=== PATIENT | female | born 1975 | race Caucasian/White ===

== ENCOUNTER 2023-08-12 09:59 | Outpatient (CLI) | payer BC, SELFPAY | END 2023-08-12 10:00 | disposition home or self-care (01) | LOC: AMB 08-14 01:50 | PROVIDERS: Visit Provider Emergency Medicine | DX: R07.89 Other chest pain (principal) | CPT/HCPCS: A0425; A0427 ==

== ENCOUNTER 2023-08-12 10:30 | Emergency (ER) | payer BC, SELFPAY ==
[2023-08-12 10:38] VITALS: BP 117/69; PULSE 54; RESP 16; TEMP 36.8; O2SAT 98; BMI 19.1
--- NOTE | 2023-08-12 10:47 | ED_ITS ---
HPI - Chest Pain General Time Seen by Provider: 10:48 Date Seen: 08/12/23 Chief Complaint: Chest Pain Stated Complaint: chest pain Time Seen by Provider: 08/12/23 10:47 Source: patient Mode of arrival: ambulatory Limitations: no limitations History of Present Illness HPI narrative: Shayla is a very pleasant 48-year-old female with history of appendectomy postop day 3., possible Crohn's disease and recent airplane ride who comes to the emergency room for chest pain. Patient notes that this morning she woke up with chest discomfort she shows this to be the mid aspect of her chest that radiated in to both sides of her chest and into her back. Patient notes she feels like she needs to crack her back course flex her back to make it feel better. It is associated with ?difficulty breathing?. She notes similar feeling on Saturday the day after she had her appendectomy while she was driving. She thought perhaps this was anxiety or hunger and after stopping and eating she felt much better. She denies a history of DVT, lower extremity edema, fever or chills. She has not yet had a bowel movement since her surgery on Saturday night August 08. Leslie thought perhaps her chest pain while traveling was from anxiety although she has never experienced chest pain like this in the past. Patient has been in [place] at a spiritual retreat in the [facility] when she suffered from an appendicitis and had her appendix removed by a specialist in [place]. For 7 years she had chronic colitis and it was thought that she had Crohn's but it sounds like there was no definitive diagnosis. She had an open incision rather than laparoscopic given the fact that she had an inflamed ileum. She notes that her surgeon was a Crohn's specialist. She notes no complications that evening. She stayed overnight and was discharged the next day. She has been using [employer] sparingly. Patient denies fever or chills. She has not had any vomiting. She had Toradol in the hospital which worked for her. She prefers not to take oral ibuprofen as it upsets her stomach. No family history of early cardiac disease or aortic dissection. Related Data Home Medications ?Medication ?Instructions ?Recorded ?Confirmed hydrocodone 5 mg-acetaminophen 325 1 tab PO Q4-6H PRN 08/12/23 08/12/23 mg tablet Allergies Allergy/AdvReac Type Severity Reaction Status Date / Time No Known Drug Allergies Allergy Verified 08/12/23 11:45 Review of Systems Status of ROS Reports: 10 or more systems reviewed and unremarkable except as noted in History and below Const Denies: fever or chills ENMT Denies: throat pain or neck pain Cardio Reports: chest pain; Denies: palpitations, edema, swelling of feet/ankles or shortness of breath with exertion Resp Denies: shortness of breath GI Reports: nausea and constipation; Denies: abdominal pain or vomiting Denies: painful urination or urinary frequency Musculo Reports: back pain; Denies: neck pain or extremity pain Integ/Breast Denies: rash Neuro Denies: headache PFSH PFSH Social History Smoking Status: Never smoker Do you use any of these nicotine containing products: None Second hand tobacco smoke exposure: No How often do you have a drink containing alcohol: never AUDIT-C Alcohol total score: 0 Non-prescribed substance use: marijuana (any form) Exam Narrative Exam Narrative: Alert and oriented. Very pleasant well-spoken woman in no acute distress. Observed breathing through IV placement. External ears eyes nose clear. Lips are dry. Speaking normally. Heart with a bradycardic rate normal rhythm. Lungs are clear bilaterally. Palpation of chest wall does not yield significant tenderness. Palpation of abdomen does not yield tenderness. Patient did seem anxious as I palpated near right lower quadrant incision. Bandages in place with no drainage on it. No surrounding erythema. Lower extremities without edema. Pedal pulses are symmetrical. No calf tenderness. Const Vital Signs, click to edit/add: Vital Signs - 24 hr 08/12/23 10:38 08/12/23 15:13 08/12/23 16:23 Temperature 98.3 F 98.8 F Pulse Rate [Pulse Oximeter] 54 L 49 L 50 L Respiratory Rate 16 16 16 Blood Pressure [Left Upper Arm] 117/69 133/75 128/83 Pulse Oximetry 98 98 98 Oxygen Delivery Method Room Air Room Air Room Air Documenting provider has reviewed patient's vital signs: yes Course Course ED Course: Differential diagnosis includes but is not limited to acute coronary event, PE, pneumothorax, aortic dissection, angina, anxiety, pneumonia. Will place IV and give 1/2 L normal saline. Will also use Toradol 15 mg IV for discomfort. Labs will include CBC, comprehensive panel, troponin, EKG, urinalysis, CRP. At this time will not do a D-dimer because this will be elevated. Instead given her recent history suggest CT of the chest abdomen pelvis PE study. Reevaluation(s) Reevaluation #1: Patient noted significant relief with the use of Toradol. She states that she is breathing much better and can feel her chest loosening up. Fortunately CT did not show any evidence of PE. Unfortunately there is a large abscess in the abdomen with associated ileal cecal inflammation. I have spoken with our surgeon Dr. Hardy we does suggest transfer to outside institution with the abilities do Interventional Radiology and drain this abscess. Patient would like us to check 1st with [facility] in the [facility] and then [place]. However, should those to institutions be field she is amenable to any hospital that has capacity to care for her. Reevaluation #2: Patient's pain has returned and therefore will use morphine 4 mg and Zofran 4 mg. We have received acceptance from [facility] after speaking to both surgeon and hospitalist. Will start patient on maintenance fluids and keep her NPO. Attempting to obtain records from [facility] in [place] where patient had her surgery. Vital Signs Vital signs: Initial Vital Signs Temperature 98.3 F 08/12/23 10:38 Temperature Source Temporal Artery Scan 08/12/23 10:38 Pulse Rate 54 L 08/12/23 10:38 Pulse Rhythm Regular 08/12/23 10:38 Pulse Strength 3+ Normal 08/12/23 10:38 Respiratory Rate 16 08/12/23 10:38 Blood Pressure 117/69 08/12/23 10:38 Blood Pressure Mean 85 08/12/23 10:38 Blood Pressure Position Sitting 08/12/23 10:38 Pulse Oximetry 98 08/12/23 10:38 Oxygen Delivery Method Room Air 08/12/23 10:38 Vital Signs Temperature 98.3 F 08/12/23 10:38 Pulse Rate 54 L 08/12/23 10:38 Respiratory Rate 16 08/12/23 10:38 Blood Pressure 117/69 08/12/23 10:38 Pulse Oximetry 98 08/12/23 10:38 Oxygen Delivery Method Room Air 08/12/23 10:38 Temperature 98.8 F 08/12/23 16:23 Pulse Rate 50 L 08/12/23 16:23 Respiratory Rate 16 08/12/23 16:23 Blood Pressure 128/83 08/12/23 16:23 Pulse Oximetry 98 08/12/23 16:23 Oxygen Delivery Method Room Air 08/12/23 16:23 Medications Administered Medications: Generic Name Dose Route Start Last Admin Trade Name Leah PRN Reason Stop Dose Admin Sodium Chloride 1,000 mls @ 125 mls/hr 08/12/23 15:04 08/12/23 15:30 0.9 % Sodium Chloride 1000 Ml IV 125 mls/hr .Q8H RACQUEL Administration Discontinued Medications Generic Name Dose Route Start Last Admin Trade Name Leah PRN Reason Stop Dose Admin Sodium Chloride 500 mls @ 500 mls/hr 08/12/23 10:58 08/12/23 12:04 0.9 % Sodium Chloride 500 Ml IV 08/12/23 11:57 Infused .Q1H ONE Infusion Piperacillin Sod/Tazobactam 100 mls @ 200 mls/hr 08/12/23 14:18 08/12/23 14:44 Sod 3.375 gm/ Sodium Chloride IVPB 08/12/23 14:19 200 mls/hr ONCE ONE Administration Ketorolac Tromethamine 15 mg 08/12/23 11:05 08/12/23 11:22 Ketorolac 15 Mg/Ml Inj IVP 08/12/23 11:06 15 mg ONCE ONE Administration Morphine Sulfate 4 mg 08/12/23 14:18 08/12/23 14:35 Morphine 4 Mg/Ml Inj IVP 08/12/23 14:19 4 mg ONCE ONE Administration Ondansetron HCl 4 mg 08/12/23 14:18 08/12/23 14:36 Ondansetron 2 Mg/Ml Inj IVP 08/12/23 14:19 4 mg ONCE ONE Administration MDM - Chest Pain MDM Narrative Medical decision making narrative: 1. Abdominal abscess-postop day 3. From appendectomy. White count is normal at 5.47 the patient does have elevation of her CRP to 3.6. No fever chills. At this time. Will give 1st dose of antibiotic Zosyn while awaiting consult with [facility]. Updated: Patient has been accepted in transfer to [facility] by Dr. Waldron following consult with surgeon Dr. Oneill. CT unable to be pushed to this facility and therefore disc has been made. Patient with significant relief after Toradol the pain is return. Will give 1 dose of morphine 4 mg and Zofran [address] on maintenance fluids and patient is to be kept NPO. 2. Chest pain-this is much improved. Patient had reassuring EKG as well as negative troponin x2. Toradol greatly relieved any discomfort. No evidence of PE noted on CT. A few branching tree-in-bud micronodular opacities in the right upper lobe, suspicious for a mild localized infectious/inflammatory process. No fever and O2 sats are reassuring. COVID negative. 3. Disposition-ground ambulance ALS transfer to [facility] for specialty care, IR and GI availability. Lab Data Attestation: I reviewed the patient's lab results. Labs: Lab Results 08/12/23 08/12/23 08/12/23 Range/Units 10:53 10:58 12:58 WBC 5.47 (4.50-11.00) K/uL RBC 4.02 (4.00-5.20) m/uL Hgb 11.0 L (12.0-16.0) gm/dL Hct 33.9 (33.0-51.0) % MCV 84 (80-100) fL MCH 27 (26-34) pg MCHC 32 (32-36) gm/dL RDW Coeff of Alexandre 15.1 (11.5-15.5) % Plt Count 211 (140-440) K/uL Neut % (Auto) 61.0 (42.0-72.0) % Lymph % (Auto) 28.9 (20-44) % [place] % (Auto) 8.4 (0.0-11.0) % Eos % (Auto) 1.1 (0.0-7.0) % Baso % (Auto) 0.4 (0.0-3.0) % Neut # (Auto) 3.34 (1.7-7.0) K/uL Lymph # (Auto) 1.58 (0.90-2.90) K/uL [place] # (Auto) 0.50 (0.00-0.90) K/UL Eos # (Auto) 0.06 (0.00-0.50) K/uL Baso # (Auto) 0.02 (0.00-0.30) K/uL Abs Immat Gran (auto) 0.01 (0.00-0.30) K/uL Imm/Tot Granulo (auto) 0.2 % Sodium 139 (135-149) mmol/L Potassium 3.4 L (3.6-5.1) mmol/L Chloride 106 (96-114) mmol/L Carbon Dioxide 28 (20-32) mmol/L Anion Gap 5 L (7-15) mEq/L BUN 9 (5-24) mg/dL Creatinine 0.5 (0.5-1.5) mg/dL Estimated Creat Clear 110.56 Estimated GFR 116 ml/min Glucose 98 (60-115) mg/dL Calcium 8.8 (8.4-10.6) mg/dL Total Bilirubin 0.3 (0.1-1.5) mg/dL AST 17 (12-35) U/L ALT 15 (4-35) U/L Alkaline Phosphatase 57 (40-150) U/L C-Reactive Protein 3.6 H (0.5-1.0) mg/dL Total Protein 6.2 (6.0-8.3) g/dL Albumin 3.6 (3.3-5.0) g/dL Urine Color Yellow (Yellow) Urine Appearance Clear (Clear) Urine pH 7.0 (5.0-8.5) Ur Specific [place] 1.015 (1.000-1.030) Urine Protein Negative (Negative) Urine Glucose (UA) Negative (Negative) Urine Ketones Negative (Negative) Urine Blood Negative (Negative) Urine Nitrite Negative (Negative) Urine Bilirubin Negative (Negative) Urine Urobilinogen 0.2 (0.2-1.0) Ur Leukocyte Esterase Trace A (Negative) Urine RBC 0-2 (0-2) Urine WBC 2-5 (0-5) Ur Squamous Epith Cells Few (None-Few) Urine Bacteria None (None) SARS-CoV-2 (PCR) (Negative) Influenza Type A (PCR) (Negative) Influenza Type B (PCR) (Negative) RSV (PCR) (Negative) POC Troponin I 0.00 L 0.00 L (0.01-0.04) ng/ml 08/12/23 Range/Units 13:08 WBC (4.50-11.00) K/uL RBC (4.00-5.20) m/uL Hgb (12.0-16.0) gm/dL Hct (33.0-51.0) % MCV (80-100) fL MCH (26-34) pg MCHC (32-36) gm/dL RDW Coeff of Alexandre (11.5-15.5) % Plt Count (140-440) K/uL Neut % (Auto) (42.0-72.0) % Lymph % (Auto) (20-44) % [place] % (Auto) (0.0-11.0) % Eos % (Auto) (0.0-7.0) % Baso % (Auto) (0.0-3.0) % Neut # (Auto) (1.7-7.0) K/uL Lymph # (Auto) (0.90-2.90) K/uL [place] # (Auto) (0.00-0.90) K/UL Eos # (Auto) (0.00-0.50) K/uL Baso # (Auto) (0.00-0.30) K/uL Abs Immat Gran (auto) (0.00-0.30) K/uL Imm/Tot Granulo (auto) % Sodium (135-149) mmol/L Potassium (3.6-5.1) mmol/L Chloride (96-114) mmol/L Carbon Dioxide (20-32) mmol/L Anion Gap (7-15) mEq/L BUN (5-24) mg/dL Creatinine (0.5-1.5) mg/dL Estimated Creat Clear Estimated GFR ml/min Glucose (60-115) mg/dL Calcium (8.4-10.6) mg/dL Total Bilirubin (0.1-1.5) mg/dL AST (12-35) U/L ALT (4-35) U/L Alkaline Phosphatase (40-150) U/L C-Reactive Protein (0.5-1.0) mg/dL Total Protein (6.0-8.3) g/dL Albumin (3.3-5.0) g/dL Urine Color (Yellow) Urine Appearance (Clear) Urine pH (5.0-8.5) Ur Specific [place] (1.000-1.030) Urine Protein (Negative) Urine Glucose (UA) (Negative) Urine Ketones (Negative) Urine Blood (Negative) Urine Nitrite (Negative) Urine Bilirubin (Negative) Urine Urobilinogen (0.2-1.0) Ur Leukocyte Esterase (Negative) Urine RBC (0-2) Urine WBC (0-5) Ur Squamous Epith Cells (None-Few) Urine Bacteria (None) SARS-CoV-2 (PCR) Negative SARS-CoV-2 (Negative) Influenza Type A (PCR) Negative PCR FLU A (Negative) Influenza Type B (PCR) Negative PCR FLU B (Negative) RSV (PCR) Negative PCR RSV (Negative) POC Troponin I (0.01-0.04) ng/ml Imaging Data CT Chest/Ab/Pelvis: Attestation: I have reviewed the pertinent imaging results. Radiologist's impression: eart and vasculature: Contrast opacification of the pulmonary arterial tree is adequate. No sign of pulmonary embolism. Heart size is normal. Thoracic aorta and pulmonary artery are normal in caliber. Lungs and pleura: Few branching tree-in-bud type micronodular opacities at the periphery of the right upper lobe (axial series 6, image [id number]). Minimal bibasilar atelectasis. No pleural effusions, pleural thickening, or pneumothorax. Lymph nodes/mediastinum: No mediastinal, hilar, or axillary adenopathy. Chest wall: No masses. Upper abdomen: For description of findings in the included abdomen, please see the dedicated abdominal CT report Bones: Unremarkable for age. IMPRESSION: 1. Negative for pulmonary embolism. 2. A few branching tree-in-bud micronodular opacities in the right upper lobe, suspicious for a mild localized infectious/inflammatory process. Lung bases: Normal. Liver: Normal. No mass. Gallbladder and bile ducts: Normal gallbladder. No bile duct dilation. Pancreas: Normal. Spleen: Normal. Small splenules. Adrenal glands: Normal. Kidneys: Normal parenchyma. No cyst or solid mass. No calculi. No urinary tract dilation. Urinary bladder: Normal. Pelvis: No cyst or mass. Vessels: Normal. Bowel: Retrocecal rim enhancing abscess measures 2.0 x 2.7 x 4.6 centimeters (AP by transverse by cc). There is significant inflammation of the terminal ileum. The involved segment measures about 10 centimeters in length. There is mucosal hyperenhancement and significant submucosal edema with bowel wall thickness measuring up to 1 centimeter. The degree of mucosal edema and wall thickening is mildly asymmetric. There is adjacent mesenteric hyperemia. No upstream dilatation. There is a moderate to large stool burden. Lymph nodes: No adenopathy. Peritoneum: Small ascites in the pelvis. Abdominal wall: Gas in the right lower quadrant abdominal wall is likely postoperative. Bones: No fractures. No focal worrisome bone lesions. IMPRESSION: 1. There is a retrocecal abscess. 2. Terminal ileitis in a pattern concerning for inflammatory bowel disease. Please note that all CT scans at this facility use dose modulation, iterative reconstruction, and/or weight-based dosing when appropriate to reduce radiation dose to as low as reasonably achievable. ECG Data Attestation: I personally reviewed and interpreted this ECG as follows: ECG interpretation date: 08/12/23 Interpretation: EKG by my read shows sinus rhythm at a rate of 53. No acute ST or T-wave changes. QT and OK intervals within normal limits. Discharge Plan Discharge Clinical Impression: Atypical chest pain, Retrocecal abscess, Status post appendectomy Patient Disposition: [facility] Discharge Location: [facility] Condition: Improved
--- NOTE | 2023-08-12 11:06 | CRLHL7_ITS ---
For Patients: As a result of the Century Cures Act, medical imaging exams and procedure reports are released immediately into your electronic medical record. You may view this report before your referring provider. If you have questions, please contact your health care provider. INDICATION: Recent emergency appendectomy 08/09/2023. Shortness of breath, pain. COMPARISON: None. TECHNIQUE: CT of the abdomen and pelvis with intravenous contrast. Multiplanar axial, coronal, and sagittal reformats were reconstructed. Contrast: 95 mL Isovue 370. FINDINGS: Lung bases: Normal. Liver: Normal. No mass. Gallbladder and bile ducts: Normal gallbladder. No bile duct dilation. Pancreas: Normal. Spleen: Normal. Small splenules. Adrenal glands: Normal. Kidneys: Normal parenchyma. No cyst or solid mass. No calculi. No urinary tract dilation. Urinary bladder: Normal. Pelvis: No cyst or mass. Vessels: Normal. Bowel: Retrocecal rim enhancing abscess measures 2.0 x 2.7 x 4.6 centimeters (AP by transverse by cc). There is significant inflammation of the terminal ileum. The involved segment measures about 10 centimeters in length. There is mucosal hyperenhancement and significant submucosal edema with bowel wall thickness measuring up to 1 centimeter. The degree of mucosal edema and wall thickening is mildly asymmetric. There is adjacent mesenteric hyperemia. No upstream dilatation. There is a moderate to large stool burden. Lymph nodes: No adenopathy. Peritoneum: Small ascites in the pelvis. Abdominal wall: Gas in the right lower quadrant abdominal wall is likely postoperative. Bones: No fractures. No focal worrisome bone lesions. IMPRESSION: 1. There is a retrocecal abscess. 2. Terminal ileitis in a pattern concerning for inflammatory bowel disease. Please note that all CT scans at this facility use dose modulation, iterative reconstruction, and/or weight-based dosing when appropriate to reduce radiation dose to as low as reasonably achievable. Dictated by Fernanda Menon MD @ 08/12/2023 12:18:50 PM (Electronically Signed)
--- NOTE | 2023-08-12 11:06 | CRLHL7_ITS ---
For Patients: As a result of the Century Cures Act, medical imaging exams and procedure reports are released immediately into your electronic medical record. You may view this report before your referring provider. If you have questions, please contact your health care provider. INDICATION: Shortness of breath. Recent emergency appendectomy. TECHNIQUE: CT chest PE was acquired with 95 cc Isovue 370 IV contrast. COMPARISON: None. FINDINGS: Heart and vasculature: Contrast opacification of the pulmonary arterial tree is adequate. No sign of pulmonary embolism. Heart size is normal. Thoracic aorta and pulmonary artery are normal in caliber. Lungs and pleura: Few branching tree-in-bud type micronodular opacities at the periphery of the right upper lobe (axial series 6, image [id number]). Minimal bibasilar atelectasis. No pleural effusions, pleural thickening, or pneumothorax. Lymph nodes/mediastinum: No mediastinal, hilar, or axillary adenopathy. Chest wall: No masses. Upper abdomen: For description of findings in the included abdomen, please see the dedicated abdominal CT report Bones: Unremarkable for age. IMPRESSION: 1. Negative for pulmonary embolism. 2. A few branching tree-in-bud micronodular opacities in the right upper lobe, suspicious for a mild localized infectious/inflammatory process. Please note that all CT scans at this facility use dose modulation, iterative reconstruction, and/or weight-based dosing when appropriate to reduce radiation dose to as low as reasonably achievable. Dictated by Moose Baker MD @ 08/12/2023 12:14:11 PM (Electronically Signed)
[2023-08-12] MEDS: KETOROLAC 15 MG/ML inj IVP (11:22)
[2023-08-12] MEDS: 0.9 % SODIUM CHLORIDE 500 ML 500 ML IV (11:23)
[2023-08-12 11:24] LABS: Appearance Urine Clear (Clear); Bilirubin Urine Negative (Negative); Blood Urine Negative (Negative); Color Urine Yellow (Yellow); Glucose Urine Negative (Negative); Ketones Urine Negative (Negative); Leukocyte Esterase Urine Trace (Negative); Nitrite Urine Negative (Negative); Protein Urine Negative (Negative); Specific Gravity Urine 1.015 (1.000-1.030); Urobilinogen Urine 0.2 (0.2-1.0)
[2023-08-12 11:34] LABS: Basophils Absolute Auto 0.02 K/uL (0.00-0.30); Basophils Percent Auto 0.4 % (0.0-3.0); Eosinophils Absolute Auto 0.06 K/uL (0.00-0.50); Eosinophils Percent Auto 1.1 % (0.0-7.0); Hematocrit 33.9 % (33.0-51.0); Immature Granulocytes Abs Auto 0.01 K/uL (0.00-0.30); Immature Granulocytes Pct Auto 0.2 %; Lymphocytes Absolute Auto 1.58 K/uL (0.90-2.90); Lymphocytes Percent Auto 28.9 % (20-44); Mean Corpuscular HGB Conc 32 gm/dL (32-36); Mean Corpuscular Hemoglobin 27 pg (26-34); Mean Corpuscular Volume 84 fL (80-100); Monocytes Percent Auto 8.4 % (0.0-11.0); Neutrophils Absolute Auto 3.34 K/uL (1.7-7.0); Platelet Count* 211 K/uL (140-440); RDW Coefficient of Variation % 15.1 % (11.5-15.5); Red Blood Count 4.02 m/uL (4.00-5.20); White Blood Count* 5.47 K/uL (4.50-11.00)
[2023-08-12 11:39] LABS: Slide Review Reflex No
[2023-08-12 11:40] LABS: Chloride* 106 mmol/L (96-114)
[2023-08-12 11:41] LABS: Albumin* 3.6 g/dL (3.3-5.0); Potassium* 3.4 mmol/L (3.6-5.1); RBC Urine 0-2 (0-2); Sodium* 139 mmol/L (135-149); Squamous Epithelial Cell Urine Few (None-Few)
[2023-08-12 11:43] LABS: Creatinine* 0.5 mg/dL (0.5-1.5); Est. Creatinine Clearance* 110.56; Estimated Glomerular Filt Rate 116 ml/min
[2023-08-12 11:44] LABS: Alanine Aminotransferase* 15 U/L (4-35); Alkaline Phosphatase* 57 U/L (40-150); Anion Gap 5 mEq/L (7-15); Aspartate Amino Transferase* 17 U/L (12-35); Bilirubin Total* 0.3 mg/dL (0.1-1.5); Blood Urea Nitrogen* 9 mg/dL (5-24); Carbon Dioxide* 28 mmol/L (20-32); Total Protein* 6.2 g/dL (6.0-8.3)
[2023-08-12 11:45] LABS: Calcium* 8.8 mg/dL (8.4-10.6); Glucose* 98 mg/dL (60-115)
[2023-08-12 11:47] LABS: C Reactive Protein* 3.6 mg/dL (0.5-1.0)
[2023-08-12 14:04] LABS: PCR FLU A Negative PCR FLU A (Negative); PCR FLU B Negative PCR FLU B (Negative); PCR RSV Negative PCR RSV (Negative); SARS PCR* Negative SARS-CoV-2 (Negative)
[2023-08-12] MEDS: MORPHINE 4 MG/ML INJ IVP (14:35)
[2023-08-12] MEDS: ONDANSETRON 2 MG/ML inj 4 MG IVP (14:36)
[2023-08-12] MEDS: PIPERACILLIN/TAZOBACTAM 3.375 GM in 0.9 % SODIUM CHLORIDE Mini-bag 100 ML IVPB (14:44)
[2023-08-12 15:13] VITALS: BP 133/75; PULSE 49; RESP 16; O2SAT 98
[2023-08-12] MEDS: 0.9 % SODIUM CHLORIDE 1000 ml 1,000 ML 125 ML IV (15:30)
--- NOTE | 2023-08-12 16:04 | ED.NURSE ---
Called [facility]- nurse to nurse report given on patient.
[2023-08-12 16:23] VITALS: BP 128/83; PULSE 50; RESP 16; TEMP 37.1; O2SAT 98
== END 2023-08-12 16:44 | disposition short-term general hospital (02) ==
PROVIDERS: Emergency Provider Family Medicine
DX: R07.89 Other chest pain (principal); L02.818 Cutaneous abscess of other sites
CPT/HCPCS: 36415; 71275; 74177; 80053; 81001; 84484; 85025; 86140; 87086; 87631; 93005; 96374; 96375; 99284; 99285; J1885; J2270; J2405; J2543; J7030; Q9967

== ENCOUNTER 2023-08-12 16:32 | Outpatient (CLI) | payer BC, SELFPAY | END 2023-08-12 16:33 | disposition home or self-care (01) | LOC: AMB 08-14 02:09 | PROVIDERS: Visit Provider Emergency Medicine | DX: K65.1 Peritoneal abscess (principal); Z90.49 Acquired absence of other specified parts of digestive tract | CPT/HCPCS: A0425; A0429 ==